=== PATIENT | female | born 1995 | race American Indian/Alaskan Native ===

== ENCOUNTER 2021-02-27 19:24 | Emergency (ER) | payer BC, OTHER ==
[2021-02-27 19:58] VITALS: BP 155/94
--- NOTE | 2021-02-27 21:28 | Emergency Department Report ---
- General Chief complaint: Animal Bite Stated complaint: BUG BITE Source: patient Mode of arrival: Ambulatory Limitations: No Limitations - History of Present Illness Initial comments: 25-year-old female [facility] emerge department complaining of an insect bite to her right arm suspicions of a spider bite for which she seeks further evaluation treatment options he was initially seen at an urgent care on yesterday and they gave her prescription for the doxycycline but she has not yet got the prescription filled and stated she want to come to the emergency department today to get a wound check. She reports no fever, chills, sweats. No chest pain or palpitations. She reports no nausea no no vomiting. She started no medications and reports no immunocompromising conditions. MD complaint: insect bite/sting -: days(s) (Few days ago) - Related Data Previous Rx's Medication Instructions Recorded Last Taken Type Chlorhexidine Gluconate [Hibiclens] 5 ml TP BID #240 liquid 02/27/21 Unknown Rx Ketorolac [Toradol] 10 mg PO Q6H PRN #14 tablet 02/27/21 Unknown Rx Mupirocin [Bactroban 2%] 1 applic TP TID #1 tube 02/27/21 Unknown Rx Abscess Boil HPI - HPI Chief Complaint: Animal Bite Stated Complaint: BUG BITE Home Medications: Previous Rx's Medication Instructions Recorded Last Taken Type Chlorhexidine Gluconate [Hibiclens] 5 ml TP BID #240 liquid 02/27/21 Unknown Rx Ketorolac [Toradol] 10 mg PO Q6H PRN #14 tablet 02/27/21 Unknown Rx Mupirocin [Bactroban 2%] 1 applic TP TID #1 tube 02/27/21 Unknown Rx ED Review of Systems ROS: Stated complaint: BUG BITE Other details as noted in HPI ED Past Medical Hx - Past Medical History Previous Medical History?: No - Surgical History Past Surgical History?: No - Medications Home Medications: Home Medications Medication Instructions Recorded Confirmed Last Taken Type Chlorhexidine Gluconate [Hibiclens] 5 ml TP BID #240 liquid 02/27/21 Unknown Rx Ketorolac [Toradol] 10 mg PO Q6H PRN #14 tablet 02/27/21 Unknown Rx Mupirocin [Bactroban 2%] 1 applic TP TID #1 tube 02/27/21 Unknown Rx ED Physical Exam - General Limitations: No Limitations General appearance: alert, in no apparent distress - Head Head exam: Present: atraumatic, normocephalic - Eye Eye exam: Present: normal appearance - ENT ENT exam: Present: normal exam, mucous membranes moist - Neck Neck exam: Present: normal inspection - Respiratory Respiratory exam: Present: normal lung sounds bilaterally. Absent: respiratory distress - Cardiovascular Cardiovascular Exam: Present: regular rate, normal rhythm. Absent: systolic murmur, diastolic murmur, rubs, gallop - GI/Abdominal GI/Abdominal exam: Present: soft, normal bowel sounds - Extremities Exam Extremities exam: Present: normal inspection - Back Exam Back exam: Present: normal inspection - Neurological Exam Neurological exam: Present: alert, oriented X3 - Psychiatric Psychiatric exam: Present: normal affect, normal mood - Skin Skin exam: Present: warm, dry, intact, normal color. Absent: rash ED Course Vital Signs 02/27/21 19:57 Temperature 98.5 F Pulse Rate 74 Respiratory 18 Rate Blood Pressure 155/94 [Right] O2 Sat by Pulse 100 Oximetry Critical care attestation.: If time is entered above; I have spent that time in minutes in the direct care of this critically ill patient, excluding procedure time. ED Disposition Disposition: HOME / SELF CARE / HOMELESS Condition: Stable Instructions: Brown Recluse Spider Bite, [id number], Spider Bite Additional Instructions: Please keep wound clean with with antimicrobial soap and ointments that were provided and as we discussed. Please get your doxycycline filled and start taking the medication that was provided to you by the urgent care that had not yet been started Prescriptions: Mupirocin [Bactroban 2%] 1 applic TP TID #1 tube Chlorhexidine Gluconate [Hibiclens] 5 ml TP BID #240 liquid Ketorolac [Toradol] 10 mg PO Q6H PRN #14 tablet PRN Reason: Pain Referrals: BIRGIT VERDE MD [Staff Physician] - 3-5 Days
== END 2021-02-27 22:51 | disposition home or self-care (01) ==
LOC: ED 19:24
DX: S60.561A Insect bite (nonvenomous) of right hand, initial encounter (principal)
CPT/HCPCS: 99282